=== PATIENT | male | born 1965 | race Caucasian/White ===

== ENCOUNTER 2017-10-19 10:13 | Day surgery (SDC) | payer BC ==
[2017-10-16 09:44] VITALS: BMI 25.8
[~2017-10-19 10:13] MED LIST: LACTATED RINGERS 1,000 ML IV SCH; LIDOCAINE 1% 20 ML VIAL (10MG/ML) FOR IV START INTRADERMA PRN
[2017-10-19 10:32] VITALS: RESP 16; TEMP 972
[2017-10-19] MEDS ORDERED: LIDOCAINE 1% INJ 10MG/ML (20 ML MDV) ONE (11:47)
[2017-10-19] MEDS ORDERED: PROPOFOL 10 MG/ML 20 ML VIAL IV ONE (11:47)
[2017-10-19] MEDS ORDERED: MIDAZOLAM 2 MG/2 ML VIAL ONE (11:47)
--- NOTE | 2017-10-19 12:13 | P.PCN ---
Date of Procedure: 10/19/17 Procedure(s) Performed: Procedure: Total colonoscopy. Preoperative diagnosis: Screening for neoplasia. Postoperative diagnosis: Exam within normal limits. Preparation: HalfLytely prep. Sedation: Was provided by anesthesia. Brief clinical history: The patient is a 52-year-old male who is scheduled for this evaluation for screening for neoplasia. He has no abdominal complaints, bleeding or anemia. His father and brother had polyps, but there is no family history of colon cancer. This would be his first colonoscopy. Procedure: With the patient on his left lateral decubitus position and after informed consent and adequate sedation, the perianal area was inspected and it did not show any fissures or fistulas. There were no masses felt on digital rectal examination. The Olympus CFQ 160L video colonoscope was then inserted in the rectum in the usual fashion and advanced to the cecum. No polyps or tumors were seen or any obvious diverticular disease. I retroflexed the endoscope in the rectum before the endoscope was withdrawn. The patient tolerated the procedure well. Plan: The patient was reassured. He will follow up with you as planned and I recommended repeat exam in 10 years.
[2017-10-19 12:33] VITALS: BP 150/96; PULSE 70
== END 2017-10-19 12:57 | disposition home or self-care (01) ==
LOC: ORWHC2ENDO 10:13
DX: Z12.11 Encounter for screening for malignant neoplasm of colon (principal); E78.5 Hyperlipidemia, unspecified; F17.210 Nicotine dependence, cigarettes, uncomplicated; Z83.71 Family history of colonic polyps; Z79.891 Long term (current) use of opiate analgesic; Z79.1 Long term (current) use of non-steroidal anti-inflammatories (NSAID)
CPT/HCPCS: J2250; J2001; J2704; G0105

== ENCOUNTER 2018-01-31 11:01 | Emergency (ER) | payer BC ==
[2018-01-31] MEDS ORDERED: ACET/COD 300 MG/30 MG STARTER PACK 6 TAB BTL PO STA (12:27)
--- NOTE | 2018-01-31 12:40 | ED ---
General Adult HPI - General Chief complaint: Urogenital Stated complaint: Groin pain Time Seen by Provider: 01/31/18 11:39 Source: patient, family, RN notes reviewed Mode of arrival: ambulatory Limitations: no limitations - History of Present Illness Initial comments: Patient is a pleasant 52-year-old male presenting to the emergency Department with complaints of left-sided groin pain. Patient was doing yard work 2 days ago. Patient had discomfort when he woke up the next morning after. Discomfort continues. Discomfort is left inguinal/left groin. It does radiate towards the testicle. No dysuria or hematuria. No abdominal or back pain. Patient states when he takes a deep breath or movement causes symptoms to worsen. No constipation or diarrhea. No fevers. Patient does attribute his symptoms to the work that was done. Patient was using a wheel barrel as well as other heavy labor. - Related Data Home Medications Medication Instructions Recorded Confirmed Meloxicam [Mobic] 7.5 mg PO DAILY 10/16/17 10/16/17 Atorvastatin [Lipitor] 10 mg PO HS 01/31/18 01/31/18 Previous Rx's Medication Instructions Recorded Acetaminophen-Codeine 300-30mg 1 each PO Q4H PRN #12 tablet 01/31/18 [Tylenol #3] Allergies Allergy/AdvReac Type Severity Reaction Status Date / Time No Known Allergies Allergy Verified 01/31/18 11:19 Review of Systems ROS Statement: Those systems with pertinent positive or pertinent negative responses have been documented in the HPI. ROS Other: All systems not noted in ROS Statement are negative. Constitutional: Denies: fever Eyes: Denies: eye pain ENT: Denies: ear pain Respiratory: Denies: cough Cardiovascular: Denies: chest pain Endocrine: Denies: fatigue Gastrointestinal: Denies: vomiting Genitourinary: Reports: testicular pain. Denies: dysuria, hematuria Musculoskeletal: Denies: back pain Skin: Denies: rash Neurological: Denies: weakness Past Medical History Past Medical History: Hyperlipidemia Additional Past Medical History / Comment(s): BRACE ON LEFT ELBOW R/T "TORN NERVE" History of Any Multi-Drug Resistant Organisms: None Reported Additional Past Surgical History / Comment(s): EYE SX CHILD FOR "LAZY EYE" Past Anesthesia/Blood Transfusion Reactions: No Reported Reaction Past Psychological History: No Psychological Hx Reported Smoking Status: Current every day smoker Past Alcohol Use History: Daily Past Drug Use History: None Reported - Past Family History Mother Family Medical History: No Reported History General Exam Limitations: no limitations General appearance: alert, in no apparent distress Head exam: Present: atraumatic Eye exam: Present: normal appearance Neck exam: Present: normal inspection Respiratory exam: Present: normal lung sounds bilaterally Cardiovascular Exam: Present: regular rate, normal rhythm GI/Abdominal exam: Present: soft, other (Patient does have discomfort near examination of the left inguinal region. No definite hernia or swelling. No hernia felt in the inguinal ring with head turning and cough.). Absent: distended, tenderness, guarding, rebound, rigid exam: Present: normal inspection. Absent: testicular tenderness, urethral discharge, scrotal swelling Course Vital Signs 01/31/18 11:20 Temperature 98 F Pulse Rate 71 Respiratory 18 Rate Blood Pressure 179/88 O2 Sat by Pulse 99 Oximetry Medical Decision Making - Medical Decision Making No obvious hernia felt on exam. No testicular tenderness. Patient does admit that his pain more radiates towards the testicle. No significant abdominal tenderness. Patient is advised that at this point it is felt most likely to be muscle strain. Patient is advised that small hernia cannot be 100% excluded. Patient is also advised that other causes are still possible, including kidney stone or infection or still other causes. Patient is offered and advised to consider ultrasound of the groin and testicle and computed tomography scan of the abdomen pelvis as well as blood work. Patient does not want to wait around at this time. Patient does have female present with him. They would both like to have pain control and discharge. Patient is receptive to return if symptoms change or worsen. Patient does them straight medical decision making. Disposition Clinical Impression: Groin strain Disposition: HOME SELF-CARE Condition: Stable Instructions: Groin Strain (ED) Additional Instructions: Please follow-up with primary care physician in the beginning of the week. Return for increased pain, swelling, fever, worsening or change in symptoms or any other concerns. If symptoms worsen or continue you do need further evaluation. Prescriptions: Acetaminophen-Codeine 300-30mg [Tylenol #3] 1 each PO Q4H PRN #12 tablet PRN Reason: Pain Is patient prescribed a controlled substance at d/c from ED?: Yes When asked, does pt state using other controlled substances?: No Referrals: Niru Grant DO [Primary Care Provider] - 1-2 days Tian Thompson DO [Doctor of Osteopathic Medicine] - 1-2 days Time of Disposition: 12:41
[2018-01-31 13:09] VITALS: BP 163/79; PULSE 61; RESP 16; TEMP 97.6
== END 2018-01-31 13:08 | disposition home or self-care (01) ==
LOC: EC 11:01
DX: S39.011A Strain of muscle, fascia and tendon of abdomen, initial encounter (principal); E78.5 Hyperlipidemia, unspecified; F17.200 Nicotine dependence, unspecified, uncomplicated; Z79.1 Long term (current) use of non-steroidal anti-inflammatories (NSAID); Z79.899 Other long term (current) drug therapy; X50.0XXA Overexertion from strenuous movement or load, initial encounter
CPT/HCPCS: 99283

== ENCOUNTER 2018-08-16 10:46 | Inpatient (IN) | payer BC ==
[2018-08-16] MEDS ORDERED: SODIUM CHLORIDE 0.9% 1,000 ML IV ONE (11:08)
[2018-08-16] MEDS ORDERED: MIDAZOLAM 2 MG/2 ML VIAL IVP ONE (11:08)
[2018-08-16] MEDS ORDERED: fentaNYL (PF) 50 MCG/ML 2 ML AMP IVP ONE (11:08)
[2018-08-16] MEDS ORDERED: LIDOCAINE 1% (PF) 10MG/ML VIAL SQ ONE (11:11)
--- NOTE | 2018-08-16 11:12 | ED ---
Chest Pain HPI - General Stated Complaint: STEMI Time Seen by Provider: 08/16/18 10:46 Source: patient, EMS, RN notes reviewed Mode of arrival: EMS - History of Present Illness Initial Comments: This is a 53-year-old male with a benign history other than smoking and hyper cholesterolemia who started having chest pain yesterday and had a chest pain again this morning he went to his doctor's office and EMS was called. 12-lead EKG per EMS showed elevations in the leads II, III, and F aVF with reciprocal aVL changes. Patient's pain was moderate to severe. Retrosternal chest pain and pressure. He did radiate to the jaw and left arm. Patient was transferred here for evaluation. I did notify Dr. Mcgowan of the patient's situation. The patient did arrive in the emergency department and after registration in my examination was taken to [facility]. His pain was not much better from when it began he states. No other modifying factors at this time MD Complaint: chest pain - Related Data Home Medications Medication Instructions Recorded Confirmed Atorvastatin [Lipitor] 10 mg PO HS 01/31/18 08/16/18 Meloxicam [Mobic] 15 mg PO DAILY 08/16/18 08/16/18 Allergies Allergy/AdvReac Type Severity Reaction Status Date / Time No Known Allergies Allergy Verified 08/16/18 10:54 Review of Systems ROS Statement: Those systems with pertinent positive or pertinent negative responses have been documented in the HPI. ROS Other: All systems not noted in ROS Statement are negative. Past Medical History Past Medical History: Hyperlipidemia Additional Past Medical History / Comment(s): BRACE ON LEFT ELBOW R/T "TORN NERVE" History of Any Multi-Drug Resistant Organisms: None Reported Additional Past Surgical History / Comment(s): EYE SX CHILD FOR "LAZY EYE" Past Anesthesia/Blood Transfusion Reactions: No Reported Reaction Past Psychological History: No Psychological Hx Reported Smoking Status: Current every day smoker Past Alcohol Use History: Daily Past Drug Use History: None Reported - Past Family History Mother Family Medical History: No Reported History General Exam - General Exam Comments Initial Comments: This a well-developed well-nourished awake alert oriented 3 male General appearance: alert, anxious, in distress Head exam: Present: atraumatic, normocephalic, normal inspection Eye exam: Present: normal appearance, PERRL, EOMI. Absent: scleral icterus, conjunctival injection, periorbital swelling ENT exam: Present: normal exam, mucous membranes moist Neck exam: Present: normal inspection. Absent: tenderness, meningismus, lymphadenopathy Respiratory exam: Present: normal lung sounds bilaterally. Absent: respiratory distress, wheezes, rales, rhonchi, stridor Cardiovascular Exam: Present: regular rate, normal rhythm, normal heart sounds. Absent: systolic murmur, diastolic murmur, rubs, gallop, clicks GI/Abdominal exam: Present: soft, normal bowel sounds. Absent: distended, tenderness, guarding, rebound, rigid Extremities exam: Present: normal inspection, full ROM, normal capillary refill. Absent: tenderness, pedal edema, joint swelling, calf tenderness Back exam: Present: normal inspection Neurological exam: Present: alert, oriented X3, CN II-XII intact Psychiatric exam: Present: normal affect, normal mood Skin exam: Present: warm, dry, intact, normal color. Absent: rash Chest Pain MDM - MDM Patient was taken to the [facility] after stability was determined patient was counseled by me regarding the likely proceedings. Disposition Clinical Impression: ST elevation myocardial infarction (STEMI), Smoking Disposition: ADMITTED IP TO THIS [facility] Condition: Serious Referrals: Niru Grant DO [Primary Care Provider] - 1-2 days
[2018-08-16] MEDS ORDERED: BIVALIRUDIN BOLUS 250 MG/50 ML IV ONE (11:22)
[2018-08-16] MEDS ORDERED: BIVALIRUDIN 250 MG in SODIUM CHLORIDE 0.9% 50 ML IV ONE (11:23)
[2018-08-16 11:24] LABS: Basophils % (A) 0 %; Eosinophils # (A) 0.2 k/uL (0-0.7); Eosinophils % (A) 1 %; HCT 41.1 % (39.0-53.0); HGB 14.5 gm/dL (13.0-17.5); Lymphocytes # (A) 1.4 k/uL (1.0-4.8); Lymphocytes % (A) 8 %; MCH 31.6 pg (25.0-35.0); MCHC 35.4 g/dL (31.0-37.0); MCV 89.4 fL (80.0-100.0); Mean Platelet Volume 7.1; Monocytes # (A) 0.8 k/uL (0-1.0); Monocytes % (A) 4 %; Neutrophils # (A) 14.9 k/uL (1.3-7.7); Neutrophils % (A) 86 %; Platelet Count 266 k/uL (150-450); RBC 4.59 m/uL (4.30-5.90); RDW 12.3 % (11.5-15.5); WBC 17.4 k/uL (3.8-10.6)
[2018-08-16] MEDS ORDERED: TICAGRELOR 90 MG TAB PO ONE (11:24)
[2018-08-16] MEDS ORDERED: NITROGLYCERIN 1000MCG/10ML SYRINGE INTRACORON ONE (11:30)
[2018-08-16] MEDS ORDERED: IOPAMIDOL-370 125ML BTL INJ ONE (11:32)
[2018-08-16 11:36] LABS: INR 1.1 (<1.2); Partial Thromboplastin Time 38.2 sec (22.0-30.0); Prothrombin Time 11.1 sec (9.0-12.0)
[2018-08-16] MEDS ORDERED: IOPAMIDOL-370 100ML BTL INJ ONE (11:43)
[2018-08-16 11:51] LABS: ALT 51 U/L (21-72); AST 264 U/L (17-59); Albumin 3.7 g/dL (3.5-5.0); Alkaline Phosphatase 94 U/L (38-126); Anion Gap 6 mmol/L; Blood Urea Nitrogen 9 mg/dL (9-20); Calcium 9.2 mg/dL (8.4-10.2); Carbon Dioxide 22 mmol/L (22-30); Chloride 106 mmol/L (98-107); Glucose 144 mg/dL (74-99); Potassium 4.1 mmol/L (3.5-5.1); Sodium 134 mmol/L (137-145); Total Bilirubin 0.9 mg/dL (0.2-1.3)
[2018-08-16] MEDS ORDERED: MAG HYDROX/AL HYDROX/SIMETH 30 ML CUP PO PRN (11:53)
[2018-08-16] MEDS ORDERED: ZOLPIDEM 5 MG TAB PO PRN (11:53)
[2018-08-16] MEDS ORDERED: NITROGLYCERIN SL TABS 0.4 MG TAB SUBLINGUAL PRN (11:53)
[2018-08-16] MEDS ORDERED: ATROPINE SULFATE 0.1 MG/ML 10ML SYRINGE IV PRN (11:53)
[2018-08-16] MEDS ORDERED: RX INFO: IV CONTRAST WAS GIVEN 1 EACH MISC MISCELLANE PRN (11:53)
[2018-08-16] MEDS ORDERED: SODIUM CHLORIDE 0.9% 1,000 ML IV SCH (12:00)
[2018-08-16 12:11] LABS: Troponin I 24.2 ng/mL (0.000-0.034)
--- NOTE | 2018-08-16 12:17 | PTCA ---
PERCUTANEOUSTRANS CORORONARY ANGIOGRAPHY Mr. Elmore is a 53-year-old male with history of chronic tobacco use and hyperlipidemia, who presented with symptoms of chest discomfort and finding consistent with an acute inferior myocardial infarction, underwent cardiac catheterization by Dr. Mcgowan, was found to have totally occluded mid RCA. In view of that, recommendation was made regarding angioplasty and stenting. The procedures, risks and complications were discussed with the patient who is in full understanding and agreement. PROCEDURE DESCRIPTION: A 6-Pashto FR4 guiding catheter was introduced into the system after stenting the right coronary ostium, a 0.014 balanced medium weight J-wire was advanced across the lesion, positioned distally. Then a 2.5 x 12 mm Trek balloon was advanced, one inflation at 10 atmospheres was done. Following that, the balloon was removed and a 3.0 x 18 mm Xience Kathi stent was deployed, post-dilated at 16 atmospheres. After the last inflation, after appropriate wait, the balloon and the guidewire were withdrawn back in the guiding catheter. Images were obtained and repeated. Those images reveal stable successful stenting. At that point, the guiding catheter, the balloon and the guidewire were removed and a 6-Pashto tight pigtail catheter introduced in the left ventricle and a 30 degree JOHN view of the left ventricle was obtained. Following that, the catheter and sheaths were removed, hemostasis was obtained with deployment of an Angio-Seal. There was no immediate complication. Patient is returned to his room in stable condition. Of note, the patient received Angiomax per protocol as well as oral loading dose of Brilinta. He had no chest discomfort at the end of procedure. RESULTS: 1. Successful stenting of the mid right coronary artery with reduction of stenosis from 100% to 0%. 2. Mildly impaired left ventricular systolic function with mild inferior wall hypokinesis, ejection fraction of 45%-50%. 3. Left ventricular end-diastolic pressure is 12-16 mmHg. RECOMMENDATION: Patient will be started on aggressive risk modification including aspirin, Brilinta, beta nae and statin. The importance of dual antiplatelet treatment were discussed with the patient and his family who are in full understanding and agreement. The importance of smoking cessation was discussed with him. Duration of the procedure is 26 minutes. MMODL / IJN: [id number] /
[2018-08-16 12:29] LABS: Cholesterol 176 mg/dL (<200); HDL Cholesterol 58 mg/dL (40-60); LDL Cholesterol,Calculated 98 mg/dL (0-99); Triglycerides 99 mg/dL (<150)
--- NOTE | 2018-08-16 12:32 | P.PCN ---
Date of Procedure: 08/16/18 Preoperative Diagnosis: Acute inferior wall myocardial infarction Postoperative Diagnosis: The same with total occlusion of the RCA Procedure(s) Performed: Left heart catheterization Description of Procedure: HISTORY: This is a 52-year-old gentleman with a history of smoking and hypercholesterolemia who started having chest pain yesterday around 3 PM and pain has been fluctuating. Apparently he was able to go to sleep but this morning the pain got worse and he went to see primary care physician. EKG showed evidence of acute inferior wall LA and was sent here by ambulance. At the time of my examination she was having mild chest discomfort. There are ST elevation in inferior leads. Patient is advised to have catheterization with the intention of primary intervention. CONSENT:I have discussed the risks, benefits and alternative therapies for the above-mentioned procedure and for both sedation/analgesia as well as necessary blood product administration, if indicated, as they pertain to this patient. The patient has indicated understanding and acceptance of the risks and procedures discussed. PROCEDURE: Patient was brought to the lab in a fasting state. Patient was given some IV sedation. The right groin is infiltrated with lidocaine and right femoral artery was entered using Seldinger technique. A 6-Japanese catheter was left in place and selective coronary arteriography was performed.. Patient tolerated the procedure well. Patient went on to have 10 placement of the RCA by Dr. Ulloa . Femoral angiogram was performed by Dr. Ulloa. Femoral angiogram was performed and Angio-Seal was applied for hemostasis. No immediate complications were noted and patient was transferred to [facility] in a stable condition Conscious Sedation: Versed 1mg Fentanyl 50 g Duration 10minutes HEMODYNAMICS: The aortic pressure is about 110/70. The left ventricular end- diastolic pressure was not measured SELECTIVE CORONARY ARTERIOGRAPHY: LEFT MAIN: Normal length and patent THE LEFT ANTERIOR DESCENDING CORONARY ARTERY:. This is a good caliber vessel giving rise to good-sized diagonal branch. The LAD is free of any significant occlusive disease THE LEFT CIRCUMFLEX AND IS CORONARY ARTERY:. This is a moderate caliber vessel giving rise good-sized OM branch and free of occlusive disease THE RIGHT CORONARY ARTERY:. This is a good sized vessel and dominant and is totally occluded in the midportion LEFT VENTRICULOGRAPHY: was performed by Dr. Ulloa at the end of the procedure. This revealed hypokinesis of the inferior segment with an ejection fraction about 40-45% FINAL IMPRESSION: Total occlusion of the mid RCA. Normal left coronary system. Mild to moderate impaired LV function with hypokinesis of the inferior wall PLAN:. Proceed with stent placement PROGNOSIS: Guarded
--- NOTE | 2018-08-16 12:37 | P.CRDCN ---
History of Present Illness Consult date: 08/16/18 History of present illness: This is a 52-year-old gentleman with history of smoking and hypercholesterolemia who started having chest pains around 3 PM yesterday afternoon. The pains were fluctuating in nature and apparently got better in the evening. Today when he woke up pain became more intense and patient went to to see primary care physician. EKG in the office showed evidence of acute inferior wall RI. Patient was sent here to the hospital. At the time of my examination patient is still having pain seemed to be mild compared to the pain he had at this morning. His EKG showed evidence of inferior wall RI. Patient is advised to have a cardiac catheterization with the intention of primary intervention. Review of Systems Not obtained Past Medical History Past Medical History: Hyperlipidemia Additional Past Medical History / Comment(s): BRACE ON LEFT ELBOW R/T "TORN NERVE" History of Any Multi-Drug Resistant Organisms: None Reported Additional Past Surgical History / Comment(s): EYE SX CHILD FOR "LAZY EYE" Past Anesthesia/Blood Transfusion Reactions: No Reported Reaction Past Psychological History: No Psychological Hx Reported Smoking Status: Current every day smoker Past Alcohol Use History: Daily Past Drug Use History: None Reported - Past Family History Mother Family Medical History: No Reported History Medications and Allergies Home Medications Medication Instructions Recorded Confirmed Type Atorvastatin [Lipitor] 10 mg PO HS 01/31/18 08/16/18 History Meloxicam [Mobic] 15 mg PO DAILY 08/16/18 08/16/18 History Allergies Allergy/AdvReac Type Severity Reaction Status Date / Time No Known Allergies Allergy Verified 08/16/18 10:54 Physical Exam Vitals: Vital Signs Temp Pulse Pulse Resp BP BP Pulse Ox 08/16/18 12:23 58 L 14 98/63 96 08/16/18 12:20 98.3 F 60 13 98/63 95 08/16/18 12:10 63 13 08/16/18 12:08 58 L 12 98/63 96 08/16/18 11:53 98.3 F 56 L 13 98/63 96 Intake and Output 08/15/18 08/16/18 08/16/18 22:59 06:59 14:59 Intake Total 312 Output Total 275 Balance 37 Intake: IV 312 Sodium Chloride 0.9% 1, 100 000 ml @ 100 mls/hr IV . Q10H [facility] Rx#:[id number] Output: Urine 275 Other: Weight 68.039 kg GENERAL EXAM: Patient is alert and oriented and doesn't appear to be in mild-to- moderate acute distress HEENT: Normocephalic. Normal reaction of pupils, equal size, normal range of extraocular motion. No erythema or exudates in the throat. NECK: No masses, no nuchal rigidity. CHEST: No chest wall deformity. LUNGS: Equal air entry with no crackles or wheeze. HEART: S1 and S2 normal with no audible mumurs or gallops. Regular rhythm, femorals equal on both sides.. ABDOMEN: No hepatosplenomegaly, normal bowel sounds, no guarding or rigidity. SKIN: No rashes CENTRAL NERVOUS SYSTEM: No focal deficits. EXTREMITIES: No cyanosis, clubbing or edema. Results 08/16/18 11:11 08/16/18 11:11 Cardiac Enzymes 08/16/18 08/16/18 Range/Units 11:11 11:11 AST 264 H (17-59) U/L CK-MB (CK-2) 132.0 H (0.0-2.4) ng/mL Troponin I 24.200 H* (0.000-0.034) ng/mL Coagulation 08/16/18 Range/Units 11:11 PT 11.1 (9.0-12.0) sec APTT 38.2 H (22.0-30.0) sec Lipids 08/16/18 Range/Units 11:11 Triglycerides 99 (<150) mg/dL Cholesterol 176 (<200) mg/dL HDL Cholesterol 58 (40-60) mg/dL CBC 08/16/18 Range/Units 11:11 WBC 17.4 H (3.8-10.6) k/uL RBC 4.59 (4.30-5.90) m/uL Hgb 14.5 (13.0-17.5) gm/dL Hct 41.1 (39.0-53.0) % Plt Count 266 (150-450) k/uL Comprehensive Metabolic Panel 08/16/18 Range/Units 11:11 Sodium 134 L (137-145) mmol/L Potassium 4.1 (3.5-5.1) mmol/L Chloride 106 (98-107) mmol/L Carbon Dioxide 22 (22-30) mmol/L BUN 9 (9-20) mg/dL Creatinine 0.66 (0.66-1.25) mg/dL Glucose 144 H (74-99) mg/dL Calcium 9.2 (8.4-10.2) mg/dL AST 264 H (17-59) U/L ALT 51 (21-72) U/L Alkaline Phosphatase 94 (38-126) U/L Total Protein 6.0 L (6.3-8.2) g/dL Albumin 3.7 (3.5-5.0) g/dL Current Medications Generic Name Dose Route Start Last Admin Trade Name Freq PRN Reason Stop Dose Admin Al Hydroxide/Mg Hydroxide 30 ml 08/16/18 11:53 Maalox PO Q4HR PRN Heartburn Aspirin 81 mg 08/17/18 09:00 Aspirin PO DAILY [facility] Atorvastatin Calcium 80 mg 08/16/18 21:00 Lipitor PO HS [facility] Atropine Sulfate 0.5 mg 08/16/18 11:53 Atropine IV ONCE PRN Symptomatic Bradycardia Sodium Chloride 1,000 mls @ 100 mls/hr 08/16/18 12:00 08/16/18 12:31 Saline 0.9% IV 08/16/18 21:59 100 mls/hr .Q10H [facility]OSETTE Administration Lisinopril 2.5 mg 08/16/18 21:00 Zestril PO BID [facility] Metoprolol Tartrate 25 mg 08/16/18 21:00 Lopressor PO BID [facility] Miscellaneous Information 1 each 08/16/18 11:53 Rx Info: Iv Contrast Was Given MISCELLANE 08/18/18 11:53 DAILY PRN Per Protocol Nitroglycerin 0.4 mg 08/16/18 11:53 Nitrostat SUBLINGUAL Q5M PRN Chest Pain Ticagrelor 90 mg 08/16/18 21:00 Brilinta PO BID [facility] Zolpidem Tartrate 5 mg 08/16/18 11:53 Ambien PO HS PRN Insomnia Intake and Output 08/15/18 08/16/18 08/16/18 22:59 06:59 14:59 Intake Total 312 Output Total 275 Balance 37 Intake: IV 312 Sodium Chloride 0.9% 1, 100 000 ml @ 100 mls/hr IV . Q10H [facility] Rx#:[id number] Output: Urine 275 Other: Weight 68.039 kg Patient Weight 08/17/18 06:59 Weight 68.039 kg 08/16/18 11:11 08/16/18 11:11 EKG Interpretations (text) Sinus rhythm with acute inferior wall RI Assessment and Plan (1) Hyperlipidemia Current Visit: Yes Status: Acute Code(s): E78.5 - HYPERLIPIDEMIA, UNSPECIFIED SNOMED Code(s): 36006326 (2) ST elevation myocardial infarction (STEMI) Current Visit: Yes Status: Acute Code(s): I21.3 - ST ELEVATION (STEMI) MYOCARDIAL INFARCTION OF [facility] SITE SNOMED Code(s): 264833737 (3) Smoking Current Visit: Yes Status: Acute Code(s): F17.200 - NICOTINE DEPENDENCE, UNSPECIFIED, UNCOMPLICATED SNOMED Code(s): 33240889 Plan: Procedure with cardiac catheterization. Further intervention as needed.
[2018-08-16 14:26] VITALS: BMI 23.5
[2018-08-16] MEDS ORDERED: HYDROcodone/APAP 5-325MG 1 EACH TAB PO PRN (15:41)
--- NOTE | 2018-08-16 15:45 | P.HPIM ---
History of Present Illness 53-year-old the male with Hypercholesteremia and a smoker came in with compensative chest pressure like sensation which started 3 PM yesterday afternoon fluctuating intensity found to have ST elevation microinfarction underwent cardiac catheterization had inferior wall microinfarction patient underwent stenting of RCA. Patient is presently and in antiplatelet therapy lisinopril since ejection fraction is 45-50% patient doesn't have any pulmonary edema denied any shortness of breath denied any present active chest pain. Review of Systems REVIEW OF SYSTEMS: CONSTITUTIONAL: No fever, no malaise, no fatigue. HEENT: No recent visual problems or hearing problems. Denied any sore throat. CARDIOVASCULAR: No chest pain, orthopnea, PND, no palpitations, no syncope. PULMONARY: No shortness of breath, no cough, no hemoptysis. GASTROINTESTINAL: No diarrhea, no nausea, no vomiting, no abdominal pain. Normoactive bowel sounds. NEUROLOGICAL: No headaches, no weakness, no numbness. HEMATOLOGICAL: Denies any bleeding or petechiae. GENITOURINARY: Denies any burning micturition, frequency, or urgency. MUSCULOSKELETAL/RHEUMATOLOGICAL: Denies any joint pain, swelling, or any muscle pain. ENDOCRINE: Denies any polyuria or polydipsia. The rest of the 14-point review of systems is negative. Past Medical History Past Medical History: Hyperlipidemia Additional Past Medical History / Comment(s): Arthritis bilateral hands/ shoulders, "they are watching my blood pressure". History of Any Multi-Drug Resistant Organisms: None Reported Past Surgical History: Heart Catheterization With Stent Additional Past Surgical History / Comment(s): Colonoscopy-normal, L eye surgery as a child for strabismus. Past Anesthesia/Blood Transfusion Reactions: Postoperative Nausea & Vomiting ( PONV) Date of Last Stent Placement:: 08/16/18 Smoking Status: Current every day smoker - Past Family History Mother Family Medical History: COPD, Pneumonia Father Family Medical History: No Reported History Medications and Allergies Home Medications Medication Instructions Recorded Confirmed Type Atorvastatin [Lipitor] 10 mg PO HS 01/31/18 08/16/18 History Meloxicam [Mobic] 15 mg PO DAILY 08/16/18 08/16/18 History Allergies Allergy/AdvReac Type Severity Reaction Status Date / Time No Known Allergies Allergy Verified 08/16/18 10:54 Physical Exam Vitals: Vital Signs Temp Pulse Pulse Resp BP BP Pulse Ox 08/16/18 15:00 60 13 109/59 97 08/16/18 14:30 66 16 100/62 97 08/16/18 14:00 71 22 101/65 95 08/16/18 13:30 58 L 23 104/59 98 08/16/18 13:00 57 L 10 L 98/57 99 08/16/18 12:30 54 L 8 L 98/63 96 08/16/18 12:23 58 L 14 98/63 96 08/16/18 12:20 98.3 F 60 13 98/63 95 08/16/18 12:10 63 13 08/16/18 12:08 58 L 12 98/63 96 08/16/18 11:53 98.3 F 56 L 13 98/63 96 Intake and Output 08/16/18 08/16/18 08/16/18 06:59 14:59 22:59 Intake Total 512 100 Output Total 275 250 Balance 237 -150 Intake: IV 512 100 Sodium Chloride 0.9% 1, 300 100 000 ml @ 100 mls/hr IV . Q10H [facility] Rx#:[id number] Output: Urine 275 250 Other: Voiding Method Urinal Weight 68.039 kg PHYSICAL EXAMINATION: GENERAL: The patient is alert and oriented x3, not in any acute distress. Well developed, well nourished. HEENT: Pupils are round and equally reacting to light. EOMI. No scleral icterus. No conjunctival pallor. Normocephalic, atraumatic. No pharyngeal erythema. No thyromegaly. CARDIOVASCULAR: S1 and S2 present. No murmurs, rubs, or gallops. PULMONARY: Chest is clear to auscultation, no wheezing or crackles. ABDOMEN: Soft, nontender, nondistended, normoactive bowel sounds. No palpable organomegaly. MUSCULOSKELETAL: No joint swelling or deformity. EXTREMITIES: No cyanosis, clubbing, or pedal edema. NEUROLOGICAL: Gross neurological examination did not reveal any focal deficits. SKIN: No rashes. Results CBC & Chem 7: 08/16/18 11:11 08/16/18 11:11 Labs: Abnormal Lab Results - Last 24 Hours (Table) 08/16/18 08/16/18 08/16/18 Range/Units 11:11 11:11 11:11 WBC 17.4 H (3.8-10.6) k/uL Neutrophils # 14.9 H (1.3-7.7) k/uL APTT 38.2 H (22.0-30.0) sec Sodium 134 L (137-145) mmol/L Glucose 144 H (74-99) mg/dL AST 264 H (17-59) U/L Total Creatine Kinase (55-170) U/L CK-MB (CK-2) (0.0-2.4) ng/mL Troponin I (0.000-0.034) ng/mL Total Protein 6.0 L (6.3-8.2) g/dL 08/16/18 Range/Units 11:11 WBC (3.8-10.6) k/uL Neutrophils # (1.3-7.7) k/uL APTT (22.0-30.0) sec Sodium (137-145) mmol/L Glucose (74-99) mg/dL AST (17-59) U/L Total Creatine Kinase 2486 H* (55-170) U/L CK-MB (CK-2) 132.0 H (0.0-2.4) ng/mL Troponin I 24.200 H* (0.000-0.034) ng/mL Total Protein (6.3-8.2) g/dL Thrombosis Risk Factor Assmnt - Choose All That Apply Any of the Below Risk Factors Present?: Yes Each Factor Represents 1 point: Acute ND, Age 41-60 years Other Risk Factors: No Other congenital or acquired thrombophilia - If yes, enter type in comment: No Thrombosis Risk Factor Assessment Total Risk Factor Score: 2 Thrombosis Risk Factor Assessment Level: Low Risk Assessment and Plan Plan: -ST elevation myocardial infarction involving inferior wall: Status post cardiac catheterization and stenting of mid RCA. Patient is on dual antiplatelet therapy lisinopril, beta nae, statin. Patient is chest pain- free at this time counseling regarding nicotine use was provided -Nicotine abuse: Counseling was provided -Acute congestive heart failure secondary to stand myocardium patient doesn't have any pulmonary edema patient is not in heart failure exacerbation. Lisinopril will be continued. His ejection fraction is expected to improve mildly depressed of 45-50% presently secondary to acute ND -Hyperlipidemia
[2018-08-16] MEDS: ATORVASTATIN 80 MG TAB PO SCH (20:16)
[2018-08-16] MEDS: TICAGRELOR 90 MG TAB PO SCH (20:16)
[2018-08-16] MEDS ORDERED: METOPROLOL TARTRATE 25 MG TAB PO SCH (21:00)
[2018-08-16] MEDS ORDERED: LISINOPRIL 2.5 MG TAB PO SCH (21:00)
[2018-08-17 04:53] LABS: Basophils % (A) 0 %; Eosinophils # (A) 0.1 k/uL (0-0.7); Eosinophils % (A) 1 %; HCT 40.3 % (39.0-53.0); Lymphocytes # (A) 1.8 k/uL (1.0-4.8); Lymphocytes % (A) 14 %; MCH 31.8 pg (25.0-35.0); MCHC 34.7 g/dL (31.0-37.0); MCV 91.6 fL (80.0-100.0); Mean Platelet Volume 7.1; Monocytes % (A) 7 %; Neutrophils # (A) 10.3 k/uL (1.3-7.7); Neutrophils % (A) 77 %; Platelet Count 210 k/uL (150-450); RDW 12.6 % (11.5-15.5); WBC 13.4 k/uL (3.8-10.6)
[2018-08-17 05:15] LABS: Anion Gap 5 mmol/L; Blood Urea Nitrogen 11 mg/dL (9-20); Calcium 9.2 mg/dL (8.4-10.2); Carbon Dioxide 26 mmol/L (22-30); Chloride 105 mmol/L (98-107); Glucose 128 mg/dL (74-99); Potassium 4.5 mmol/L (3.5-5.1); Sodium 136 mmol/L (137-145)
[2018-08-17] MEDS: TICAGRELOR 90 MG TAB PO SCH ×2 (08:03→20:33)
[2018-08-17] MEDS: ASPIRIN 81 MG PO SCH (08:03)
--- NOTE | 2018-08-17 08:41 | P.PN ---
Subjective Progress Note Date: 08/17/18 This is a 53-year-old gentleman who was admitted to the hospital yesterday with acute inferior wall myocardial infarction. His pain started on the day before with fluctuating intensity . He had stent placement of the mid RCA which was totally occluded. Left, system is free of occlusive disease. His CPK went up to 2000 and his inferior wall is hypokinetic. He is feeling better. Denies any chest pain or shortness of breath. His maintaining sinus rhythm. His blood pressures running low. I'm going Back the dose of the beta nae and also lisinopril. His blood work is reviewed which seemed to be stable. He is tolerating activity. We'll probably transfer him to telemetry and by this evening. Objective - Vital Signs Vital signs: Vital Signs Temp 98.0 F 08/17/18 08:00 Pulse 64 08/17/18 08:00 Resp 12 08/17/18 08:00 BP 103/83 08/17/18 08:00 Pulse Ox 97 08/17/18 08:00 Intake & Output 08/16/18 08/17/18 08/17/18 18:59 06:59 18:59 Intake Total 912 0 400 Output Total 900 250 400 Balance 12 -250 0 Weight 68.039 kg 70.1 kg Intake: IV 912 Sodium Chloride 0.9% 1, 700 000 ml @ 100 mls/hr IV . Q10H [facility] Rx#:[id number] Oral 0 400 Output: Urine 900 250 400 Other: Voiding Method Urinal Toilet Toilet Urinal Urinal # Voids 0 1 # Bowel Movements 1 - Exam GENERAL EXAM: Patient is alert and oriented and doesn't appear to be in any acute distress HEENT: Normocephalic. Normal reaction of pupils, equal size, normal range of extraocular motion. No erythema or exudates in the throat. NECK: No masses, no nuchal rigidity. CHEST: No chest wall deformity. LUNGS: Equal air entry with no crackles or wheeze. HEART: S1 and S2 normal with no audible mumurs or gallops. Regular rhythm, ABDOMEN: No hepatosplenomegaly, normal bowel sounds, no guarding or rigidity. SKIN: No rashes CENTRAL NERVOUS SYSTEM: No focal deficits. EXTREMITIES: No cyanosis, clubbing or edema. - Labs CBC & Chem 7: 08/17/18 04:35 08/17/18 04:35 Labs: Abnormal Lab Results - Last 24 Hours (Table) 08/16/18 08/16/18 08/16/18 Range/Units 11:11 11:11 11:11 WBC 17.4 H (3.8-10.6) k/uL Neutrophils # 14.9 H (1.3-7.7) k/uL APTT 38.2 H (22.0-30.0) sec Sodium 134 L (137-145) mmol/L Glucose 144 H (74-99) mg/dL AST 264 H (17-59) U/L Total Creatine Kinase (55-170) U/L CK-MB (CK-2) (0.0-2.4) ng/mL Troponin I (0.000-0.034) ng/mL Total Protein 6.0 L (6.3-8.2) g/dL 08/16/18 08/16/18 08/16/18 Range/Units 11:11 16:56 22:56 WBC (3.8-10.6) k/uL Neutrophils # (1.3-7.7) k/uL APTT (22.0-30.0) sec Sodium (137-145) mmol/L Glucose (74-99) mg/dL AST (17-59) U/L Total Creatine Kinase 2486 H* (55-170) U/L CK-MB (CK-2) 132.0 H (0.0-2.4) ng/mL Troponin I 24.200 H* 94.200 H* 60.700 H* (0.000-0.034) ng/mL Total Protein (6.3-8.2) g/dL 08/17/18 08/17/18 Range/Units 04:35 04:35 WBC 13.4 H (3.8-10.6) k/uL Neutrophils # 10.3 H (1.3-7.7) k/uL APTT (22.0-30.0) sec Sodium 136 L (137-145) mmol/L Glucose 128 H (74-99) mg/dL AST (17-59) U/L Total Creatine Kinase (55-170) U/L CK-MB (CK-2) (0.0-2.4) ng/mL Troponin I (0.000-0.034) ng/mL Total Protein (6.3-8.2) g/dL Assessment and Plan (1) Hyperlipidemia Current Visit: Yes Status: Acute Code(s): E78.5 - HYPERLIPIDEMIA, UNSPECIFIED SNOMED Code(s): 53249531 (2) ST elevation myocardial infarction (STEMI) Current Visit: Yes Status: Acute Code(s): I21.3 - ST ELEVATION (STEMI) MYOCARDIAL INFARCTION OF [facility] SITE SNOMED Code(s): 224593596 (3) Smoking Current Visit: Yes Status: Acute Code(s): F17.200 - NICOTINE DEPENDENCE, UNSPECIFIED, UNCOMPLICATED SNOMED Code(s): 86261979 Plan: Patient is clinically stable. No signs of CHF or arrhythmias. No chest pain. Increase activity and transfer to telemetry unit. Blood pressure is running low on on cut back the dose of the beta nae and EDELMIRA inhibitor.
[2018-08-17] MEDS: LISINOPRIL 2.5 MG TAB PO SCH (09:46)
[2018-08-17] MEDS: METOPROLOL TARTRATE 25 MG TAB PO SCH ×2 (09:54→20:33)
--- NOTE | 2018-08-17 11:18 | ECHOF ---
Referral Reason:mi MEASUREMENTS -------- HEIGHT: 170.2 cm WEIGHT: 68.0 kg BP: 107/78 RVIDd: 2.2 cm (< 3.3) IVSd: 1.0 cm (0.6 - 1.1) LVIDd: 4.2 cm (3.9 - 5.3) LVPWd: 1.3 cm (0.6 - 1.1) IVSs: 1.6 cm LVIDs: 3.3 cm LVPWs: 1.3 cm LAESV Index (A-L): 23.04 ml/m Ao Diam: 3.1 cm (2.0 - 3.7) AV Cusp: 2.1 cm (1.5 - 2.6) LA Diam: 3.3 cm (2.7 - 3.8) MV EXCURSION: 14.100 mm (> 18.000) MV EF SLOPE: 78 mm/s (70 - 150) EPSS: 0.4 cm MV E Neal: 0.79 m/s MV DecT: 158 ms MV A Neal: 0.76 m/s MV E/A Ratio: 1.05 RAP: 5.00 mmHg RVSP: 22.55 mmHg FINDINGS -------- Sinus rhythm. This was a technically good study. The left ventricular size is normal. There is mild concentric left ventricular hypertrophy. Overa ll left ventricular systolic function is mildly impaired with, an EF between 45 - 50 %. Basal infer ior LV wall motion is hypokinetic. Basal inferoseptal LV wall motion is hypokinetic. Mid inferi or LV wall motion is hypokinetic. The right ventricle is normal in size and function. Normal LA size by volume 22+/-6 ml/m2. The right atrium is normal in size. The aortic valve is trileaflet and appears structurally normal. The mitral valve is normal. Mild mitral regurgitation is present. Mild tricuspid regurgitation present. Right ventricular systolic pressure is normal at < 35 mmHg. The right ventricular systolic pressure, as measured by Doppler, is 22.55mmHg. There is no pulmonic regurgitation present. The aortic root size is normal. Normal inferior vena cava with normal inspiratory collapse consistent with estimated right atrial pre ssure of 5 mmHg. There appears to be an artifact seen in the IVC. There is no pericardial effusion. CONCLUSIONS -------- 1. Sinus rhythm. 2. This was a technically good study. 3. The left ventricular size is normal. 4. There is mild concentric left ventricular hypertrophy. 5. Overall left ventricular systolic function is mildly impaired with, an EF between 45 - 50 %. 6. Basal inferior LV wall motion is hypokinetic. 7. Basal inferoseptal LV wall motion is hypokinetic. 8. Mid inferior LV wall motion is hypokinetic. 9. Normal LA size by volume 22+/-6 ml/m2. 10. The aortic valve is trileaflet and appears structurally normal. 11. The mitral valve is normal. 12. Mild mitral regurgitation is present. 13. Mild tricuspid regurgitation present. 14. Right ventricular systolic pressure is normal at < 35 mmHg. 15. There is no pulmonic regurgitation present. 16. The aortic root size is normal. 17. Normal inferior vena cava with normal inspiratory collapse consistent with estimated right atrial pressure of 5 mmHg. 18. There appears to be an artifact seen in the IVC. 19. There is no pericardial effusion. DIRECTOR [employer]: Shandra Maldonado RDCS
--- NOTE | 2018-08-17 15:42 | P.PN ---
Subjective Patient admitted with the instillation microinfarction and had stenting of RCA had ejection fraction of 45-50% no overnight events chest pain-free Constitutional: Denied any fatigue denied any fever. Cardio vascular: denied any chest pain, palpitations Gastrointestinal denied any nausea vomiting Pulmonary: Denied any shortness of breath cough Neurologic denied any new focal deficits All inpatient medications were reviewed and appropriate changes in these medications as dictated in the interval history and assessment and plan. Objective - Vital Signs Vital signs: Vital Signs Temp 97.5 F L 08/17/18 12:00 Pulse 64 08/17/18 12:00 Resp 25 H 08/17/18 12:00 BP 87/64 08/17/18 12:00 Pulse Ox 94 L 08/17/18 12:00 Intake & Output 08/16/18 08/17/18 08/17/18 18:59 06:59 18:59 Intake Total 912 0 400 Output Total 900 250 400 Balance 12 -250 0 Weight 68.039 kg 70.1 kg Intake: IV 912 Sodium Chloride 0.9% 1, 700 000 ml @ 100 mls/hr IV . Q10H [facility] Rx#:[id number] Oral 0 400 Output: Urine 900 250 400 Other: Voiding Method Urinal Toilet Toilet Urinal Urinal # Voids 0 1 # Bowel Movements 1 - Exam PHYSICAL EXAMINATION: GENERAL: The patient is alert and oriented x3, not in any acute distress. Well developed, well nourished. HEENT: Pupils are round and equally reacting to light. EOMI. No scleral icterus. No conjunctival pallor. Normocephalic, atraumatic. No pharyngeal erythema. No thyromegaly. CARDIOVASCULAR: S1 and S2 present. No murmurs, rubs, or gallops. PULMONARY: Chest is clear to auscultation, no wheezing or crackles. ABDOMEN: Soft, nontender, nondistended, normoactive bowel sounds. No palpable organomegaly. MUSCULOSKELETAL: No joint swelling or deformity. EXTREMITIES: No cyanosis, clubbing, or pedal edema. NEUROLOGICAL: Gross neurological examination did not reveal any focal deficits. SKIN: No rashes. - Labs CBC & Chem 7: 08/17/18 04:35 08/17/18 04:35 Labs: Abnormal Lab Results - Last 24 Hours (Table) 08/16/18 08/16/18 08/17/18 Range/Units 16:56 22:56 04:35 WBC (3.8-10.6) k/uL Neutrophils # (1.3-7.7) k/uL Sodium 136 L (137-145) mmol/L Glucose 128 H (74-99) mg/dL Troponin I 94.200 H* 60.700 H* (0.000-0.034) ng/mL 08/17/18 Range/Units 04:35 WBC 13.4 H (3.8-10.6) k/uL Neutrophils # 10.3 H (1.3-7.7) k/uL Sodium (137-145) mmol/L Glucose (74-99) mg/dL Troponin I (0.000-0.034) ng/mL Assessment and Plan Plan: -ST elevation myocardial infarction involving inferior wall: Status post cardiac catheterization and stenting of mid RCA. Patient is on dual antiplatelet therapy lisinopril, beta nae, statin. Patient is chest pain- free at this time counseling regarding nicotine use was provided -Nicotine abuse: Counseling was provided -Acute congestive heart failure secondary to stunned myocardium patient doesn't have any pulmonary edema patient is not in heart failure exacerbation. Lisinopril will be continued. His ejection fraction is expected to improve mildly depressed of 45-50% presently secondary to acute [place] -Hyperlipidemia
[2018-08-17] MEDS: ATORVASTATIN 80 MG TAB PO SCH (20:33)
[2018-08-18 05:07] LABS: Basophils % (A) 0 %; Eosinophils # (A) 0.2 k/uL (0-0.7); Eosinophils % (A) 1 %; HCT 39.5 % (39.0-53.0); HGB 13.6 gm/dL (13.0-17.5); Lymphocytes # (A) 2.7 k/uL (1.0-4.8); Lymphocytes % (A) 23 %; MCH 31.8 pg (25.0-35.0); MCHC 34.3 g/dL (31.0-37.0); MCV 92.8 fL (80.0-100.0); Mean Platelet Volume 7.2; Monocytes # (A) 0.8 k/uL (0-1.0); Monocytes % (A) 7 %; Neutrophils # (A) 7.7 k/uL (1.3-7.7); Neutrophils % (A) 67 %; Platelet Count 186 k/uL (150-450); RBC 4.26 m/uL (4.30-5.90); RDW 12.4 % (11.5-15.5); WBC 11.6 k/uL (3.8-10.6)
[2018-08-18 05:18] LABS: Anion Gap 5 mmol/L; Blood Urea Nitrogen 12 mg/dL (9-20); Calcium 9.2 mg/dL (8.4-10.2); Carbon Dioxide 28 mmol/L (22-30); Chloride 104 mmol/L (98-107); Glucose 115 mg/dL (74-99); Magnesium 1.8 mg/dL (1.6-2.3); Potassium 4.5 mmol/L (3.5-5.1); Sodium 137 mmol/L (137-145)
[2018-08-18] MEDS: LISINOPRIL 2.5 MG TAB PO SCH (08:20)
[2018-08-18] MEDS: ASPIRIN 81 MG PO SCH (08:20)
[2018-08-18] MEDS: TICAGRELOR 90 MG TAB PO SCH ×2 (08:20→19:28)
[2018-08-18] MEDS: METOPROLOL TARTRATE 25 MG TAB PO SCH ×2 (08:22→19:28)
--- NOTE | 2018-08-18 15:17 | P.PN ---
Subjective Progress Note Date: 08/18/18 This is a 53-year-old gentleman who was admitted to the hospital yesterday with acute inferior wall myocardial infarction. His pain started on the day before with fluctuating intensity . He had stent placement of the mid RCA which was totally occluded. Left, system is free of occlusive disease. His CPK went up to 2000 and his inferior wall is hypokinetic. He is feeling better. Denies any chest pain or shortness of breath. His maintaining sinus rhythm. His blood pressures running low. I'm going Back the dose of the beta nae and also lisinopril. His blood work is reviewed which seemed to be stable. He is tolerating activity. We'll probably transfer him to telemetry and by this evening. 08/18/2018: This patient is status post acute inferior wall PR and stent placement. His echo showed an ejection fraction of 45% with hypokinesis of the inferior segments. Patient is free of any chest pain. Denies any shortness of breath. His blood pressures running low with systolics of 80-90. He is on low dose of Lopressor. We will discontinue this and a platelet this time. Increase activity as tolerated. Possible discharge in the morning Objective - Vital Signs Vital signs: Vital Signs Temp 97.7 F 08/18/18 11:45 Pulse 62 08/18/18 11:45 Resp 18 08/18/18 11:45 BP 85/51 08/18/18 11:45 Pulse Ox 98 08/18/18 11:45 Intake & Output 08/17/18 08/18/18 08/18/18 18:59 06:59 18:59 Intake Total 750 240 480 Output Total 400 Balance 350 240 480 Weight 67.7 kg Intake: Oral 750 240 480 Output: Urine 400 Other: Voiding Method Toilet Toilet Urinal Urinal # Voids 1 0 1 # Bowel Movements 1 - Exam GENERAL EXAM: Patient is alert and oriented and doesn't appear to be in any acute distress HEENT: Normocephalic. Normal reaction of pupils, equal size, normal range of extraocular motion. No erythema or exudates in the throat. NECK: No masses, no nuchal rigidity. CHEST: No chest wall deformity. LUNGS: Equal air entry with no crackles or wheeze. HEART: S1 and S2 normal with no audible mumurs or gallops. Regular rhythm, ABDOMEN: No hepatosplenomegaly, normal bowel sounds, no guarding or rigidity. SKIN: No rashes CENTRAL NERVOUS SYSTEM: No focal deficits. EXTREMITIES: No cyanosis, clubbing or edema. - Labs CBC & Chem 7: 08/18/18 04:31 08/18/18 04:31 Labs: Abnormal Lab Results - Last 24 Hours (Table) 08/18/18 08/18/18 Range/Units 04:31 04:31 WBC 11.6 H (3.8-10.6) k/uL RBC 4.26 L (4.30-5.90) m/uL Glucose 115 H (74-99) mg/dL Assessment and Plan (1) Hyperlipidemia Current Visit: Yes Status: Acute Code(s): E78.5 - HYPERLIPIDEMIA, UNSPECIFIED SNOMED Code(s): 72145066 (2) ST elevation myocardial infarction (STEMI) Current Visit: Yes Status: Acute Code(s): I21.3 - ST ELEVATION (STEMI) MYOCARDIAL INFARCTION OF [facility] SITE SNOMED Code(s): 518537633 (3) Smoking Current Visit: Yes Status: Acute Code(s): F17.200 - NICOTINE DEPENDENCE, UNSPECIFIED, UNCOMPLICATED SNOMED Code(s): 57551475 Plan: Patient is clinically stable except his blood pressure running low. I'm going to discontinue lisinopril. Continue rest of the medication. Increase activity. If stable will discharge home tomorrow.
[2018-08-18] MEDS: ATORVASTATIN 80 MG TAB PO SCH (19:28)
[2018-08-18 23:32] VITALS: RESP 16
[2018-08-19] MEDS: ASPIRIN 81 MG PO SCH (09:29)
[2018-08-19] MEDS: TICAGRELOR 90 MG TAB PO SCH (09:29)
[2018-08-19] MEDS: METOPROLOL TARTRATE 25 MG TAB PO SCH (09:29)
[2018-08-19 12:34] VITALS: BP 104/63; PULSE 67; TEMP 98.1
--- NOTE | 2018-08-19 14:54 | P.PN ---
Subjective Progress Note Date: 08/19/18 This is a 53-year-old gentleman admitted to the hospital with an acute inferior wall myocardial infarction. He underwent angioplasty and stenting of the right coronary artery. Patient was seen and examined today, doing well, up ambulating in the [place] without any difficulty. Hemodynamically stable. Echocardiogram with Doppler study revealed an ejection fraction of 45% with hypokinesia in the inferior segment. Objective - Vital Signs Vital signs: Vital Signs Temp 98.1 F 08/19/18 12:10 Pulse 67 08/19/18 12:10 Resp 16 08/19/18 12:10 BP 104/63 08/19/18 12:10 Pulse Ox 99 08/19/18 12:10 Intake & Output 08/18/18 08/19/18 08/19/18 18:59 06:59 18:59 Intake Total 480 600 720 Balance 480 600 720 Weight 61.6 kg Intake: Oral 480 600 720 Other: Voiding Method Toilet Urinal # Voids 5 1 # Bowel Movements 2 0 - Exam PHYSICAL EXAMINATION: GENERAL: 53-year-old gentleman in no acute distress at the time of my examination HEENT: Head is atraumatic, normocephalic. Pupils equal, round. Sclera anicteric. Conjunctiva are clear. Mucous membranes of the mouth are moist. Neck is supple. There is no elevated jugular venous pressure.] bruit is heard. HEART EXAMINATION: Heart S1, S2 normal. No murmur or gallop heard. CHEST EXAMINATION: Lungs are clear to auscultation and precussion. No chest wall tenderness is noted on palpation or with deep breathing. ABDOMEN: Soft, nontender. Bowel sounds are heard. No organomegaly noted. EXTREMITIES: 2+ peripheral pulses with no evidence of peripheral edema and no calf tenderness noted. NEUROLOGIC patient is awake, alert and oriented ?-3. . - Labs CBC & Chem 7: 08/18/18 04:31 08/18/18 04:31 Assessment and Plan Plan: Assessment and plan #1 acute inferior wall myocardial infarction status post angioplasty and stenting of the right coronary #2 nicotine dependence #3 hyperlipidemia Plan From cardiology's perspective, patient may be able to be discharged home today. We'll make him a follow-up appointment to see Dr. Mcgowan in the office post discharge. Patient will be discharged home on aspirin 81 mg daily, Lipitor 80 mg daily, metoprolol 25 mg one tablet by mouth twice a day, Brilinta 90 mg twice a day and sublingual nitroglycerin as needed for chest pain. DNP note has been reviewed, I agree with a documented findings and plan of care. Patient was seen and examined.
--- NOTE | 2018-08-19 18:52 | P.PN ---
Subjective Progress Note Date: 08/18/18 Progress note being dictated for Dr. Kumar. Interval history:Patient admitted with the instillation microinfarction and had stenting of RCA had ejection fraction of 45-50% no overnight events chest pain- free Constitutional: Denied any fatigue denied any fever. Cardio vascular: denied any chest pain, palpitations Gastrointestinal denied any nausea vomiting Pulmonary: Denied any shortness of breath cough Neurologic denied any new focal deficits 08/18/2018 systolic blood pressures in the 90s, heart rates in the low 60s, medications further adjusted as per cardiology. Creatinine 0.9. Sodium within normal limits. Denies chest pain, palpitations or increasing shortness of breath. Ambulating in hallway, tolerating exertion well. All inpatient medications were reviewed and appropriate changes in these medications as dictated in the interval history and assessment and plan. Objective - Vital Signs Vital signs: Vital Signs Temp 97.8 F 08/18/18 08:10 Pulse 66 08/18/18 08:10 Resp 18 08/18/18 08:10 BP 100/55 08/18/18 08:10 Pulse Ox 97 08/18/18 08:10 Intake & Output 08/17/18 08/18/18 08/18/18 18:59 06:59 18:59 Intake Total 750 240 240 Output Total 400 Balance 350 240 240 Weight 67.7 kg Intake: Oral 750 240 240 Output: Urine 400 Other: Voiding Method Toilet Toilet Urinal Urinal # Voids 1 0 2 # Bowel Movements 1 - Exam GENERAL: The patient is alert and oriented x3, not in any acute distress. Well developed, well nourished. HEENT: Pupils are round and equally reacting to light. EOMI. No scleral icterus. No conjunctival pallor. Normocephalic, atraumatic. CARDIOVASCULAR: S1 and S2 present. No murmurs, rubs, or gallops. PULMONARY: Chest is clear to auscultation, no wheezing or crackles. ABDOMEN: Soft, nontender, nondistended, normoactive bowel sounds. No palpable organomegaly. MUSCULOSKELETAL: No joint swelling or deformity. EXTREMITIES: No cyanosis, clubbing, or pedal edema. NEUROLOGICAL: Gross neurological examination did not reveal any focal deficits. SKIN: No rashes. - Labs CBC & Chem 7: 08/18/18 04:31 08/18/18 04:31 Labs: Abnormal Lab Results - Last 24 Hours (Table) 08/18/18 08/18/18 Range/Units 04:31 04:31 WBC 11.6 H (3.8-10.6) k/uL RBC 4.26 L (4.30-5.90) m/uL Glucose 115 H (74-99) mg/dL Assessment and Plan Assessment: -ST elevation myocardial infarction involving inferior wall: Status post cardiac catheterization and stenting of mid RCA. -Nicotine abuse: Counseling was provided -Hyperlipidemia Plan: Continue on current medication regime ,monitoring and symptomatic treatment. Maintain dual antiplatelet therapy, beta nae, statin. EDELMIRA inhibitor discontinued secondary to borderline hypotension. Increase ambulation as tolerated Discharge planning in progress for tomorrow. The impression and plan of care has been dictated as directed. : I performed a history and examination of this patient, discussed the same with the dictator. I agree with the dictator's note ,documented as a scribe. Any additional findings or plans will be noted.
--- NOTE | 2018-08-19 18:57 | P.DS ---
Providers Date of admission: 08/16/18 11:12 Expected date of discharge: 08/19/18 Attending physician: Maia Kumar Consults: 08/16/18 11:53 Consult Physician Routine Consulting Provider: [facility] Consult Reason/Comments: Post Interventional patient Do you want consulting provider notified?: Already Contacted Primary care physician: Niru Grant Hospital Course: Final Diagnoses: -ST elevation myocardial infarction involving inferior wall: Status post cardiac catheterization and stenting of mid RCA. -Nicotine abuse: Counseling was provided -Hyperlipidemia Hospital course:Patient admitted with the ST elevation myocardial infarction. Evaluated by cardiology, underwent cardiac cath. with stenting of RCA, ejection fraction of 45-50%.Systolic blood pressures in the 90s, heart rates in the low 60s, medications further adjusted as per cardiology. Significant clinical improvement. Patient has been cleared for discharge by cardiology. Patient is being discharged home in a stable condition with guarded prognosis. GENERAL: The patient is alert and oriented x3, not in any acute distress. CARDIOVASCULAR: S1 and S2 present. No murmurs, rubs, or gallops. PULMONARY: Chest is clear to auscultation, no wheezing or crackles. ABDOMEN: Soft, nontender, nondistended, normoactive bowel sounds. No palpable organomegaly. NEUROLOGICAL: Gross neurological examination did not reveal any focal deficits. The impression and plan of care has been dictated as directed. : I performed a history and examination of this patient, discussed the same with the dictator. I agree with the dictator's note ,documented as a scribe. Any additional findings or plans will be noted. Time taken: 35 minutes Patient Condition at Discharge: Stable Plan - Discharge Summary Discharge Rx Participant: No New Discharge Prescriptions: New Aspirin 81 mg PO DAILY #30 chew Atorvastatin [Lipitor] 80 mg PO HS #30 tab Metoprolol Tartrate [Lopressor] 12.5 mg PO BID #60 tab Nitroglycerin Sl Tabs [Nitrostat] 0.4 mg SUBLINGUAL Q5M PRN #25 tab PRN Reason: Chest Pain Ticagrelor [Brilinta] 90 mg PO BID #60 tab Discontinued Atorvastatin [Lipitor] 10 mg PO HS Meloxicam [Mobic] 15 mg PO DAILY Discharge Medication List Aspirin 81 mg PO DAILY #30 chew 08/19/18 [Rx] Atorvastatin [Lipitor] 80 mg PO HS #30 tab 08/19/18 [Rx] Metoprolol Tartrate [Lopressor] 12.5 mg PO BID #60 tab 08/19/18 [Rx] Nitroglycerin Sl Tabs [Nitrostat] 0.4 mg SUBLINGUAL Q5M PRN #25 tab 08/19/18 [Rx ] Ticagrelor [Brilinta] 90 mg PO BID #60 tab 08/19/18 [Rx] Follow up Appointment(s)/Referral(s): Niru Grant DO [Primary Care Provider] - 08/23/18 8:40 am (Thursday) Maria Elena Mcgowan MD [STAFF PHYSICIAN] - 08/26/18 8:45 am () Ambulatory/Diagnostic Orders: Complete Blood Count w/diff [LAB.AMB] Time Frame: 3 Days, Location: None Selected Patient Instructions/Handouts: *Surgery [facility] - After Heart Catheterization - Visitor Information Assistant Instructions, Heart Healthy Diet (DC) Activity/Diet/Wound Care/Special Instructions: Brilinta copay $12. Discharge/Stand Alone Forms: Work/School Release Discharge Disposition: HOME SELF-CARE
== END 2018-08-19 15:59 | disposition home or self-care (01) | DRG 247 ==
LOC: EC 10:46 → 2SICU 11:12 → 3SCARD 08-18 06:00
PROVIDERS: ADMIT Hospitalist; ATTEND Hospitalist
PROC: B2111ZZ Fluoroscopy of Multiple Coronary Arteries using Low Osmolar Contrast (ICD-10-PCS; 2018-08-16)
PROC: B2151ZZ Fluoroscopy of Left Heart using Low Osmolar Contrast (ICD-10-PCS; 2018-08-16)
PROC: 027034Z Dilation of Coronary Artery, One Artery with Drug-eluting Intraluminal Device, Percutaneous Approach (ICD-10-PCS; principal; 2018-08-16 10:49)
PROC: 4A023N7 Measurement of Cardiac Sampling and Pressure, Left Heart, Percutaneous Approach (ICD-10-PCS; 2018-08-16 10:49)
DX: I21.19 ST elevation (STEMI) myocardial infarction involving other coronary artery of inferior wall (principal); E78.00 Pure hypercholesterolemia, unspecified; E78.5 Hyperlipidemia, unspecified; Z71.6 Tobacco abuse counseling; F17.210 Nicotine dependence, cigarettes, uncomplicated; I25.10 Atherosclerotic heart disease of native coronary artery without angina pectoris; I50.9 Heart failure, unspecified; M19.042 Primary osteoarthritis, left hand; M19.041 Primary osteoarthritis, right hand; M19.012 Primary osteoarthritis, left shoulder; M19.011 Primary osteoarthritis, right shoulder; Z79.1 Long term (current) use of non-steroidal anti-inflammatories (NSAID); Z79.899 Other long term (current) drug therapy; Z82.5 Family history of asthma and other chronic lower respiratory diseases
CPT/HCPCS: 80048; 80053; 80061; 82550; 82553; 83735; 84484; 85025; 85610; 85730; 93306; 93458; 99285; C1874